=== PATIENT | female | born 2000 | race Caucasian/White ===

== ENCOUNTER 2023-03-09 14:53 | Outpatient (CLI) | payer OTHER ==
--- NOTE | 2023-03-09 15:32 | Sleep Patient Instructions ---
Sleep Center Visit Summary - Patient Visit Information Reason for Visit: Initial consult for evaluation of sleep disordered breathing and other sleep issues. - Patient Instructions Instructions Attached: Sleep Study Home Monitor Additional Instructions: You will be completing a sleep study, either an in-lab polysomnography (PSG) or home sleep study (HST). You will follow-up in the sleep care office after the sleep study is completed to hear the results and talk about therapy, if needed. You will be called by our office staff to schedule this appointment, but you may contact us with any questions. - Clinic Information Contact: [facility] [address] [place] [address] [email or web address] T: [phone]
--- NOTE | 2023-03-09 15:41 | SLEEP CARE CONSULTATION ---
Information from patient questionnaire entered by Margo Brito. I have reviewed and concur with the information entered by Margo Brito. This document represents the service I personally performed and the decisions made by me, Natividad Haley ARNP. History of Present Illness Service Date and Time: 03/09/2023 1453 Reason for Visit: New patient Accompanied by: yassine Mcleod Chief Complaint: reports: Unrefreshed sleep, Observed pauses in breathing, Frequent awakenings at night Date of Onset: SEVERAL YRS Usual bedtime: 9PM Time it takes to fall asleep: watches a TV show or more to go to sleep Snores at night: Yes Observed to quit breathing while asleep: Yes Number of times waking at night: 3 Reasons for waking at night: reports: Gasping for air, Other (UNKNOWN). denies: Choking Toss, Turn, or Twitch while sleeping: Yes Recalls having dreams: Yes (some nightmares too) Usually gets out of bed at: 0930-10AM Feels refreshed in the morning: No Morning headache: No Sleepy or fatigued during the day: Yes Ever fallen asleep while driving: No (does not drive) Takes day naps: Yes (did, but does not nap in last year) Dreams during day naps: No Prior sleep studies: No Additional HPI information: I had the pleasure of seeing NESSA ROSE today regarding the possibility of her having a sleep disorder. She has a history of Downs Syndrome. Her current complaints are unrefreshed sleep, observed pauses in breathing and frequent night awakenings. She is accompanied by her father, Harsha. She says she has nightmares and will wake up at night. Her father says she is having some gasping for air, struggling for breath and stoppage of air several times a night. She has a hard time waking up in the morning. She is often sleepy in the daytime and used to nap every day but no longer does nap during day unless they go for car ride. She states she does not like having sleep problems. Her father says she complains of waking up and having trouble with breathing. She has had multiple throat surgeries, including tonsillectomy. - Parasomnia Symptoms Ever been unable to move upon waking from sleep: Yes Walks in sleep: No Talks in sleep: Yes Ever acted out dreams in sleep: No Ever felt weak in the knees when startled or emotional: No Bothered by creepy, crawly, restless sensations in legs: Yes Problems with memory or concentration: Yes (? 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 Patient is Single and lives in . Have you smoked in the past 12 months: No Alcohol use: No Caffeine use: Yes Caffeine amount and frequency: RARELY Family History Family history of sleep disordered breathing: Yes Family Hx Sleep Apnea: Mother: Snoring, Sibling: Snoring Allergies and Home Medications Known drug allergies: No Drug allergies reviewed: Yes Home medication list reviewed: Yes (no daily medications) Review of Systems Cardiovascular: denies: high blood pressure Gastrointestinal: denies: heartburn Neurological: denies: headaches Psychiatric: denies: anxiety, depression Ear/Nose/Throat: reports: tonsillectomy, other (SEVERAL THROAT SURGERIES ) Physical Exam Vital signs obtained and entered by: MARGO Maldonado MA Blood Pressure: 109/85 (LEFT) Cuff size: wrist Heart Rate: 87 O2 Saturation: 100 Height: 4 ft 9.25 in Weight: 111 lb 9.6 oz Body Mass Index: 23.9 BMI Classification: Normal Neck circumference: 13.75 Mouth and throat: narrow oropharynx Soft palate: long Hard palate: normal Uvula visualization: 0% Mallampati Class IV Tongue: normal in size Tonsils: absent bilaterally Neck: normal w/o lymphadenopathy or thyromegaly Heart: regular rate and rhythm Lungs: clear bilaterally Impression and Plan 1. Suspected Obstructive Sleep Apnea-Hypopnea Syndrome, as suggested by a history of loud and irregular snoring, observed cessation of breath while asleep, gasping or choking in sleep, frequent awakening during the night and unrefreshed sleep. Narrow oropharynx and obesity are common predisposing factors for obstructive sleep apnea-hypopnea syndrome. I recommend proceeding to polysomnography to confirm the diagnosis and to assess severity. If the patient has significant sleep disordered breathing, a manual CPAP titration study will also be performed to find the optimal treatment pressure. I informed the patient of what the sleep studies involve and after some discussion, obtained agreement to proceed from her father and also Nessa. The pathophysiology of obstructive sleep apnea-hypopnea syndrome was discussed with the patient and health risks of cardiovascular and cerebrovascular disease if not treated. Risks of drowsy driving discussed in detail and patient advised to avoid long distance driving and to pulling unit operator at the first sign of drowsiness. Patient agreed to plan. * Schedule polysomnography. * Avoid long distance driving or driving when feeling sleepy. * Avoid alcohol, sedative and muscle relaxant around bedtime. * Review instructions provided by trained office staff on how to prepare for the sleep study. * Return for follow-up after sleep study completed. Plan: PSG/HST Visit Type: In Office Time Spent with Patient (minutes): 32 Provider Statement: I spent 100% of the Face to Face Visit with the patient with greater than 50% spent counseling the patient and coordination of care.
[2023-03-09 15:49] VITALS: BP 109/85; O2SAT 100
== END 2023-03-09 14:54 | disposition home or self-care (01) ==
LOC: SC 14:53
PROVIDERS: ATTEND Nurse Practitioner Family
DX: G47.8 Other sleep disorders (principal); R06.83 Snoring; R06.81 Apnea, not elsewhere classified; Q90.9 Down syndrome, unspecified
CPT/HCPCS: 99203; 99212

== ENCOUNTER 2023-03-26 08:47 | Outpatient (CLI) | payer OTHER | END 2023-03-26 08:48 | disposition home or self-care (01) | LOC: SC 08:47 | PROVIDERS: ATTEND Nurse Practitioner Family | DX: G47.8 Other sleep disorders (principal); R09.02 Hypoxemia; R06.83 Snoring; R06.81 Apnea, not elsewhere classified | CPT/HCPCS: 95806 ==

== ENCOUNTER 2023-04-16 11:44 | Outpatient (CLI) | payer OTHER ==
--- NOTE | 2023-04-16 11:41 | SLEEP CARE CONSULTATION ---
Information from patient questionnaire entered by Margo Brito. I have reviewed and concur with the information entered by Margo Brito. This document represents the service I personally performed and the decisions made by , Natividad Haley ARNP. History of Present Illness Service Date and Time: 04/16/2023 1140 Accompanied by: Father Initial [place] Sleepiness Scale score: 11 (02/09/23) Current [place] Sleepiness Scale score: 10 (04/16/23) Additional HPI information: NESSA ROSE returns via video appointment with Father for follow up and results of the recently performed home sleep study. She has a history of Down's Syndrome. The patient was informed of the following findings: No significant sleep disordered breathing with an average AHI of 1.4 and judy oxygen saturation of 87%. I explained the pathophysiology behind obstructive sleep apnea. Patient does not have sleep apnea and was advised how weight gain could increase the risk of developing sleep apnea in the future. Patient has light snoring. Snoring can be treated with an oral appliance from a dentist. Advised to check insurance coverage. In addition, an ENT evaluation can be do to see if other treatment is indicated. Patient does not drink alcohol. Patient does not drive. Sleep Study - Results Type of Sleep Study: Home sleep study (COMPLETED 03/26/23) Prior sleep studies: No Polysomnography/Home Sleep Study results: Physician Impression: The quality of the study is good. The length of the study is adequate (> 240 minutes). Please also see the tabulated and graphic data. 1. No significant sleep disordered breathing, with an AHI of 1.4/hr and judy SaO2 of 87%. During the study, the patient had 12 apneas (12 obstructive, 0 central, 0 mixed) and 4 hypopneas. The longest episode lasted 39.0 seconds. The patient only slept supine during this study (supine AHI was 1.4 and non-supine, 0.00). 2. Hypoxemia (ICD-10 R09.02), minimal, with the lowest oxygen saturation of 87 % and 3.4 minutes with SaO2 under 90%. Baseline oxygen saturation was normal (Average oxygen saturation was 96%). Allergies and Home Medications Known drug allergies: No Drug allergies reviewed: Yes Home medication list reviewed: Yes (no changes) Allergy and home medication list: Allergies No Known Drug Allergies Allergy (Verified 04/15/23 10:32) Review of Systems Review of systems same as previous: Yes (NO CHANGE) Physical Exam Vital signs obtained and entered by: MARGO Maldonado MA Height: 4 ft 9.25 in (PER PT FATHER) Weight: 108 lb Body Mass Index: 23.1 BMI Classification: Normal Impression and Plan 1. Snoring but no significant sleep disordered breathing. An ENT consult can also be helpful to determine if any other treatment is an option. 2. Hypoxemia, minimal, with a judy oxygen saturation of 87% and 3.4 minutes spent under 90%. The baseline oxygen saturation was normal with an average oxygen saturation of 96%. * Return as needed for follow up. Counseling Topics: Weight control Follow up with Sleep Care in: as needed Visit Type: Telehealth Video Video Type: Doximity Patient Location: Home Other Participants: Other (Father) Location of Provider: Office Patient agrees and consents to this telehealth visit type: Yes Patient agrees to have their insurance billed: Yes Time Spent with Patient (minutes): 16 Provider Statement: I spent 100% of the Telehealth Video Call with the patient with greater than 50% spent counseling the patient and coordination of care.
== END 2023-04-16 11:45 | disposition home or self-care (01) ==
LOC: SC 11:44
PROVIDERS: ATTEND Nurse Practitioner Family
DX: R06.83 Snoring (principal); R09.02 Hypoxemia